=== PATIENT | female | born 1940 | race Caucasian/White ===

== ENCOUNTER → 2018-10-27 10:38 | Outpatient (CLI) | payer MEDICARE, OTHER, SELFPAY ==
[2018-10-27 12:33] LABS: Add Manual Diff / Slide Review NO; Basophils Absolute Auto 0 /uL (0-100); Eosinophils Absolute Auto 100 /uL (0-450); Eosinophils Percent Auto 3.1 % (2-4); Hematocrit 44.3 % (36-46); Hemoglobin 14.6 g/dL (12.0-16.0); Lymphocytes Absolute Auto 1300 /uL (1100-4500); Lymphocytes Percent Auto 29.8 % (25-40); Mean Corpuscular Hemoglobin 29.6 PG (26-34); Mean Corpuscular Volume 89.7 fL (80-100); Monocytes Absolute Auto 600 /uL (0-900); Monocytes Percent Auto 12.2 % (3-14); Neutrophils Absolute Auto 2400 /uL (1500-7000); Neutrophils Percent Auto 53.9 % (50-75); Platelet Count 211 X10^3/uL (150-400); Red Blood Cell Count 4.94 X10^6/uL (4.0-5.2); Red Cell Distribution Width 13.6 % (11.6-14.8); White Blood Cell Count 4.5 X10^3/uL (4.5-11.0)
[2018-10-27 12:44] LABS: Alanine Aminotransferase 18 IU/L (9-52); Albumin 4.5 g/dL (3.5-5.0); Albumin Globulin Ratio 1.5 (1.0-2.8); Alkaline Phosphatase 63 U/L (38-126); Aspartate Aminotransferase 22 IU/L (14-36); BUN Creatinine Ratio 31.4 (6-22); Blood Urea Nitrogen 22 mg/dL (7-17); Calcium 9.8 mg/dL (8.4-10.2); Carbon Dioxide 29 mmol/L (22-32); Chloride 103 mmol/L (98-107); Cholesterol 221 mg/dL (140-199); Estimated Glomerular Filt Rate > 60.0 mL/min (>60); Glucose 86 mg/dL (80-110); HDL Cholesterol 54 mg/dL (40-60); HEMOLYSIS < 15 (0-50); LDL Cholesterol Calculated 153 mg/dL (<100); Potassium 4.3 mmol/L (3.4-5.1); Sodium 140 mmol/L (137-145); Total Protein 7.5 g/dL (6.3-8.2); Triglycerides 72 mg/dL (35-150)
[2018-10-27 13:32] LABS: Thyroid Stimulating Hormone 1.74 uIU/mL (0.47-4.68)
[2018-10-27 16:30] LABS: Vitamin D 25 Hydroxy (D3) 66.9 ng/mL (30.0-100.0)
== END ==
PROVIDERS: PCP Family Medicine; Visit Provider Family Medicine
DX: Z00.01 Encounter for general adult medical examination with abnormal findings (principal); Z00.00 Encounter for general adult medical examination without abnormal findings; E55.9 Vitamin D deficiency, unspecified; N28.9 Disorder of kidney and ureter, unspecified; R89.9 Unspecified abnormal finding in specimens from other organs, systems and tissues; Z13.1 Encounter for screening for diabetes mellitus; Z13.220 Encounter for screening for lipoid disorders; Z13.0 Encounter for screening for diseases of the blood and blood-forming organs and certain disorders involving the immune mechanism; E78.5 Hyperlipidemia, unspecified
CPT/HCPCS: 36415; 80053; 80061; 82306; 84443; 85025

== ENCOUNTER 2019-03-13 18:59 | Emergency (ER) | payer MEDICARE, OTHER, SELFPAY ==
[2019-03-13 19:08] VITALS: BP 138/71; PULSE 92; RESP 16; TEMP 36.7; O2SAT 97; BMI 23.3
[2019-03-13] MEDS: TET,DIPH,PERTUSS(ACELL),VAC/PF 0.5 ML SYRINGE IM (19:29)
[2019-03-13] MEDS: LIDO 1%/SOD BICARB 8.4% (10ML) 10 ML SYRINGE INJ (19:29)
--- NOTE | 2019-03-13 19:31 | PC.NURSE ---
buffered lidocaine administered by ESPERANZA for lac repair.
--- NOTE | 2019-03-13 20:54 | ED.UPPEXIN ---
HPI - Extremity Injury (Upper) <MANDIE Cadet - Last Filed: 03/13/19 20:59> General Chief Complaint: Extremity Injury, Upper Stated Complaint: laceration to index finger left hand Time Seen by Provider: 03/13/19 19:12 Source: patient and family Mode of arrival: Ambulatory Limitations: no limitations History of Present Illness HPI narrative: The patient is a 78-year-old female nonsmoker with history of anxiety who presents with her for chief complaint of laceration to her left index finger. She states she was cutting chicken and accidentally cut herself with the tip of her finger. She states she has full range of motion. She has not cleansed it. She does not know when her last tetanus was. Related Data Previous Rx's Medication Instructions Recorded doxycycline monohydrate 100 mg 100 mg PO BID #30 cap 11/02/18 capsule Allergies Allergy/AdvReac Type Severity Reaction Status Date / Time levofloxacin [From [facility]] Allergy Intermediate Verified 03/13/19 19:28 SULFA Allergy Mild FEELINGS Uncoded 03/13/19 19:28 OF DEMISE Review of Systems <MANDIE Cadet - Last Filed: 03/13/19 20:59> Review of Systems Narrative: GENERAL: Denies chills, fatigue, malaise, fever, sweats. HEENT: Denies sinus pain, ear pain, sore throat, difficulty swallowing, dizziness. RESPIRATORY: Denies dyspnea, cough, wheezing, hemoptysis, sputum. CARDIOVASCULAR: Denies chest pain, palpitations, orthopnea, edema, GASTROINTESTINAL: Denies nausea, vomiting, abdominal pain, diarrhea, constipation, melena. : Denies dysuria, frequency, incontinence, hematuria, urinary retention. MUSCULOSKELETAL: See HPI SKIN: See HPI NEUROLOGIC: Denies weakness, headache, numbness, change in speech, confusion, seizures, incoordination. PSYCHIATRIC: No concerning psychosocial issues. 12 point review of systems is negative except for those stated above Patient History <MANDIE Cadet - Last Filed: 03/13/19 20:59> Substance Use Type: does not use Exam <MANDIE Cadet - Last Filed: 03/13/19 20:59> Narrative Exam Narrative: GENERAL: This is a well-nourished, well-developed patient, no acute distress holding pressure on would HEAD: Atraumatic. Normocephalic. No temporal or scalp tenderness. EYES: Pupils equal round and reactive. Extraocular motions intact. No scleral icterus. No injection or drainage. ENT: Nose without bleeding, purulent drainage or septal hematoma. Throat without erythema, tonsillar hypertrophy or exudate. Uvula midline. Airway patent. NECK: Trachea midline. No JVD or lymphadenopathy. Supple, nontender, no meningeal signs. CARDIOVASCULAR: Regular rate and rhythm RESPIRATORY: No cough. No increased respiratory effort. No accessory muscle use. EXTREMITIES: Full range of motion noted left 2nd digit against resistance all matute. Cap refill less than 2 seconds. BACK: Nontender without deformity or crepitance. No flank tenderness. NEURO: AOx3. SKIN: 1 cm laceration noted tip of left 2nd digit. Linear, well-approximated. Oozing blood. No obvious muscle or tendon involvement. Noted to be perpendicular to nail, no nail involvement and medial to nail. Initial Vital Signs Initial Vital Signs: Vital Signs Temperature 98.1 F 03/13/19 19:08 Pulse Rate 92 H 03/13/19 19:08 Respiratory Rate 16 03/13/19 19:08 Blood Pressure 138/71 03/13/19 19:08 Pulse Oximetry 97 03/13/19 19:08 <Sara Back DO - Last Filed: 03/13/19 23:58> Initial Vital Signs Initial Vital Signs: Vital Signs Temperature 98.1 F 03/13/19 19:08 Pulse Rate 92 H 03/13/19 19:08 Respiratory Rate 16 03/13/19 19:08 Blood Pressure 138/71 03/13/19 19:08 Pulse Oximetry 97 03/13/19 19:08 Procedures <MANDIE Cadet - Last Filed: 03/13/19 20:59> Laceration Repair Laceration 1: Site: hand Size (cm): 1 Description: linear Depth: simple, single layer Pre-repair: wound explored, irrigated extensively (Soaked with Hibiclens) and deep structures intact Skin layer closed with: steri-strips Course <MANDIE Cadet - Last Filed: 03/13/19 20:59> Orders Ordered: Discontinued Medications Diphtheria/Tetanus/Acell Pertussis (Adacel) 0.5 ml IM .ONCE ONE Stop: 03/13/19 19:22 Last Admin: 03/13/19 19:29 Dose: 0.5 ml Documented by: AMELIA Lidocaine/Sodium Bicarbonate (Buffered Lidocaine 10 Ml Syr) 10 ml INJ NOW ONE Stop: 03/13/19 19:22 Last Admin: 03/13/19 19:29 Dose: 10 ml Documented by: AMELIA Vital Signs Vital signs: Vital Signs - 8 hr 03/13/19 19:08 Temperature 98.1 F Pulse Rate 92 H Respiratory Rate 16 Blood Pressure 138/71 Pulse Oximetry 97 <Sara Back DO - Last Filed: 03/13/19 23:58> Orders Ordered: Discontinued Medications Diphtheria/Tetanus/Acell Pertussis (Adacel) 0.5 ml IM .ONCE ONE Stop: 03/13/19 19:22 Last Admin: 03/13/19 19:29 Dose: 0.5 ml Documented by: AMELIA Lidocaine/Sodium Bicarbonate (Buffered Lidocaine 10 Ml Syr) 10 ml INJ NOW ONE Stop: 03/13/19 19:22 Last Admin: 03/13/19 19:29 Dose: 10 ml Documented by: AMELIA Vital Signs Vital signs: Vital Signs - 8 hr 03/13/19 19:08 Temperature 98.1 F Pulse Rate 92 H Respiratory Rate 16 Blood Pressure 138/71 Pulse Oximetry 97 MDM - Extremity Injury (Upper) <RED Cadet-JANES - Last Filed: 03/13/19 20:59> MDM Narrative Medical decision making narrative: The patient is a 78-year-old female who presents with a chief complaint of laceration to her finger. Her wound was cleansed, hemostasis was easily achieved. The patient did not like needles. We did a closure with Dermabond with Steri-Strips after extensive cleansing with Hibiclens. She has full range of motion against resistance. She is neurovascularly intact. Her tetanus was updated in the emergency department. I discussed at length follow up with PCP, monitoring for signs and symptoms of infection and not submerging her wound in dirty water. Given that the wound is on the patient's finger tip, I did discuss a trial to make sure that no active bleeding would reoccur and she would not require sutures. The patient requested to leave. I discussed at length monitoring for signs and symptoms action, come back to the emergency department for any acute concerns. Patient has no questions or concerns upon discharge and states understanding return precautions as well as follow-up care. Discharge Plan Departure Patient Disposition: Home Clinical Impression: Laceration Discharge Date/Time: 03/13/19 20:37 Instructions: DI for Laceration Repair With Dermabond Activity Restrictions/Additional Instructions: Today we updated her tetanus and cleansed your wound. Please monitor your laceration for signs and symptoms of infection such as redness pus fever etc. We soaked your wound in a very good cleanser, so I do not believe that this will happen. However please watch out for these possibilities. Please follow up if this happens. Please come back to emergency department for any acute concerns. Please enjoy your trip :) Prescriptions: No Action doxycycline monohydrate 100 mg capsule 100 mg PO BID Qty: 30 RF: 5 Referrals: Juan Butcher MD [Primary Care Provider] -
== END 2019-03-13 20:37 | disposition home or self-care (01) ==
PROVIDERS: Emergency Provider Nurse Practitioner Family; PCP Family Medicine
DX: S61.211A Laceration without foreign body of left index finger without damage to nail, initial encounter (principal)
CPT/HCPCS: 90471; 99282; 90715

== ENCOUNTER → 2020-02-23 10:02 | Outpatient (CLI) | payer MEDICARE, OTHER, SELFPAY ==
[2020-02-23 10:28] LABS: Add Manual Diff / Slide Review NO; Basophils Absolute Auto 100 /uL (0-100); Basophils Percent Auto 1.3 % (0-2); Eosinophils Absolute Auto 300 /uL (0-450); Eosinophils Percent Auto 6.6 % (2-4); Hemoglobin 14.3 g/dL (12.0-16.0); Lymphocytes Absolute Auto 1500 /uL (1100-4500); Lymphocytes Percent Auto 32.3 % (25-40); Mean Corpuscular HGB Conc 33.9 % (30-36); Mean Corpuscular Hemoglobin 30.2 PG (26-34); Mean Corpuscular Volume 89.1 fL (80-100); Monocytes Absolute Auto 600 /uL (0-900); Monocytes Percent Auto 12.4 % (3-14); Neutrophils Absolute Auto 2200 /uL (1500-7000); Neutrophils Percent Auto 47.4 % (50-75); Platelet Count 233 X10^3/uL (150-400); Red Blood Cell Count 4.72 X10^6/uL (4.0-5.2); Red Cell Distribution Width 13.6 % (11.6-14.8); White Blood Cell Count 4.6 X10^3/uL (4.5-11.0)
[2020-02-23 11:01] LABS: Alanine Aminotransferase 19 IU/L (<35); Albumin 4.2 g/dL (3.5-5.0); Albumin Globulin Ratio 1.4 (1.0-2.8); Alkaline Phosphatase 71 U/L (38-126); Aspartate Aminotransferase 26 IU/L (14-36); Bilirubin Total 0.7 mg/dL (0.2-1.3); Blood Urea Nitrogen 19 mg/dL (7-17); Calcium 9.7 mg/dL (8.4-10.2); Carbon Dioxide 31 mmol/L (22-32); Chloride 104 mmol/L (98-107); Cholesterol 214 mg/dL (140-199); Estimated Glomerular Filt Rate > 60.0 mL/min (>60); Globulin 2.9 g/dL (1.7-4.1); Glucose 93 mg/dL (80-110); HDL Cholesterol 71 mg/dL (40-60); HEMOLYSIS < 15 (0-50); LDL Cholesterol Calculated 129 mg/dL (<100); Potassium 4.2 mmol/L (3.4-5.1); Sodium 139 mmol/L (137-145); Total Protein 7.1 g/dL (6.3-8.2); Triglycerides 68 mg/dL (35-150)
== END ==
PROVIDERS: PCP Family Medicine; Referring Provider Family Medicine; Visit Provider Family Medicine
DX: F41.9 Anxiety disorder, unspecified (principal); E78.2 Mixed hyperlipidemia
CPT/HCPCS: 36415; 80053; 80061; 85025